=== PATIENT | female | born 1945 | race Hispanic/Latino ===

== ENCOUNTER 2017-12-13 13:29 | Outpatient (CLI) | payer MEDICARE | END 2017-12-13 13:30 | disposition home or self-care (01) | LOC: BICMAMMO 13:29 | PROVIDERS: ATTEND Internal Medicine | DX: Z12.31 Encounter for screening mammogram for malignant neoplasm of breast (principal); Z80.3 Family history of malignant neoplasm of breast | CPT/HCPCS: 77063; 77067 ==

== ENCOUNTER 2019-07-31 13:52 | Outpatient (CLI) | payer MEDICARE, BC ==
--- NOTE | 2019-07-31 14:34 | MMO ---
Bilateral MAMMO Bilat Screen [facility]. CLINICAL HISTORY: Patient is 73 years old and is seen for screening. The patient has the following family history of breast cancer: daughter. The patient has no personal history of cancer. VIEWS: The views performed were: bilateral craniocaudal with tomosynthesis and bilateral mediolateral oblique with tomosynthesis. FILMS COMPARED: The present examination has been compared to prior imaging studies performed at [facility] on 12/13/2017, and at [facility] on 02/07/2013, 02/13/2014 and 03/13/2015. This study has been interpreted with the assistance of computer-aided detection. MAMMOGRAM FINDINGS: There are scattered fibroglandular densities. There are stable benign appearing calcifications seen in both breasts. There are also vascular calcifications. There are no suspicious masses, suspicious calcifications, or new areas of architectural distortion. IMPRESSION: THERE IS NO MAMMOGRAPHIC EVIDENCE OF MALIGNANCY. A ROUTINE FOLLOW-UP MAMMOGRAM IN 1 YEAR IS RECOMMENDED. THE RESULTS OF THIS EXAM WERE SENT TO THE PATIENT. ACR BI-RADS Category 2 - Benign finding MAMMOGRAPHY NOTE: 1. A negative mammogram report should not delay a biopsy if a dominant of clinically suspicious mass is present. 2. Approximately 10% to 15% of breast cancers are not detected by mammography. 3. Adenosis and dense breasts may obscure an underlying neoplasm. Reported by: IFEANYI MATTHEWS MD Electonically Signed: [id number]
== END 2019-07-31 13:53 | disposition home or self-care (01) ==
LOC: BICMAMMO 13:52
PROVIDERS: ATTEND Internal Medicine
DX: Z12.31 Encounter for screening mammogram for malignant neoplasm of breast (principal); Z80.3 Family history of malignant neoplasm of breast
CPT/HCPCS: 77063; 77067

== ENCOUNTER 2022-11-18 09:47 | Outpatient (CLI) | payer OTHER | END 2022-11-18 09:48 | disposition home or self-care (01) | LOC: BICMAMMO 09:47 | PROVIDERS: ATTEND Family Medicine | DX: Z12.31 Encounter for screening mammogram for malignant neoplasm of breast (principal); Z12.2 Encounter for screening for malignant neoplasm of respiratory organs; F17.210 Nicotine dependence, cigarettes, uncomplicated; Z80.3 Family history of malignant neoplasm of breast | CPT/HCPCS: 71271; 77063; 77067 ==

== ENCOUNTER 2023-02-08 06:56 | Emergency (ER) | payer OTHER | END 2023-02-08 08:26 | disposition home or self-care (01) | LOC: ERS 06:56 | DX: S22.31XA Fracture of one rib, right side, initial encounter for closed fracture (principal); F17.210 Nicotine dependence, cigarettes, uncomplicated; W18.30XA Fall on same level, unspecified, initial encounter ==

== ENCOUNTER 2023-04-14 13:20 | Outpatient (CLI) | payer OTHER | END 2023-04-14 13:21 | disposition home or self-care (01) | LOC: BICMAMMO 13:20 | PROVIDERS: ATTEND Family Medicine | DX: Z13.820 Encounter for screening for osteoporosis (principal); M81.0 Age-related osteoporosis without current pathological fracture; Z78.0 Asymptomatic menopausal state | CPT/HCPCS: 77080 ==

== ENCOUNTER 2023-12-19 16:38 | Emergency (ER) | payer MEDICARE, SELFPAY ==
[2023-12-19 18:15] LABS: #Basophils Less than 0.03 10x3/uL (0.0-0.2); %Basophils 0.2 % (0.0-1.0); %Eosinophils 0.5 % (0.0-10.0); %Lymphocytes 23.3 % (21.0-51.0); %Monocytes 8.6 % (0.0-10.0); Hematocrit 42.4 % (36.0-47.0); Hemoglobin 14.9 g/dL (12.0-16.0); Mean Corpuscular HGB CONC 35.1 g/dL (32.0-36.0); Mean Platelet Volume 8.5 fL (7.4-10.4); Platelet Count 306 10x3/uL (130-400); RBC Distribution Width 11.9 % (11.5-14.5); Red Blood Cell (RBC) Count 4.51 mill/uL (4.20-5.40)
[2023-12-19 18:34] LABS: ALT (SGPT) 13 U/L (8-55); AST (SGOT) 23 U/L (5-34); Alkaline Phosphatase 71 U/L (40-110); Anion Gap 14 mmol/L (10-20); BUN (Urea Nitrogen) 6 mg/dL (9.8-20.1); Bilirubin, Total 0.6 mg/dL (0.2-1.2); Calc. Creatinine Clearance 0 mL/min (70-130); Calcium 8.8 mg/dL (7.8-10.44); Carbon Dioxide 25 mmol/L (23-31); Chloride 99 mmol/L (98-107); Estimated GFR 95; Globulin 2.9 g/dL (2.4-3.5); Glucose 117 mg/dL (83-110); Potassium 3.2 mmol/L (3.5-5.1); Protein, Total 6.9 g/dL (5.8-8.1); Sodium 135 mmol/L (136-145)
== END 2023-12-19 19:10 | disposition home or self-care (01) ==
LOC: ERS 16:38
DX: M25.562 Pain in left knee (principal); E87.6 Hypokalemia; F17.210 Nicotine dependence, cigarettes, uncomplicated
CPT/HCPCS: 36415; 80053; 85025

== ENCOUNTER 2024-04-16 14:52 | Outpatient (CLI) | payer MEDICARE | END 2024-04-16 14:53 | disposition home or self-care (01) | LOC: CT 14:52 | PROVIDERS: ATTEND Family Medicine | DX: R91.8 Other nonspecific abnormal finding of lung field (principal) | CPT/HCPCS: 36415; 71270; 82565 ==

== ENCOUNTER 2024-04-23 07:50 | Emergency (ER) | payer MEDICARE | END 2024-04-23 09:55 | disposition home or self-care (01) | LOC: ERS 07:50 | DX: S00.83XA Contusion of other part of head, initial encounter (principal); F17.210 Nicotine dependence, cigarettes, uncomplicated; W01.198A Fall on same level from slipping, tripping and stumbling with subsequent striking against other object, initial encounter | CPT/HCPCS: 70450 ==

== ENCOUNTER 2024-05-23 08:08 | Inpatient (IN) | payer MEDICARE ==
[2024-05-23 09:31] LABS: #Basophils 0.03 10x3/uL (0.0-0.2); %Basophils 0.2 % (0.0-1.0); %Eosinophils 0.4 % (0.0-10.0); %Lymphocytes 9.1 % (21.0-51.0); %Monocytes 7.6 % (0.0-10.0); %Neutrophils 82.3 % (42.0-75.0); Hemoglobin 10.7 g/dL (12.0-16.0); Mean Corpuscular HGB CONC 35.7 g/dL (32.0-36.0); Mean Corpuscular Hemoglobin 32.4 pg (27.0-31.0); Mean Corpuscular Volume 90.9 fL (78.0-98.0); Mean Platelet Volume 8.2 fL (7.4-10.4); Platelet Count 406 10x3/uL (130-400); RBC Distribution Width 12.2 % (11.5-14.5)
[2024-05-23 09:49] LABS: ALT (SGPT) 13 U/L (8-55); AST (SGOT) 18 U/L (5-34); Alkaline Phosphatase 146 U/L (40-110); Anion Gap 13 mmol/L (10-20); BUN (Urea Nitrogen) 7 mg/dL (9.8-20.1); Bilirubin, Total 0.6 mg/dL (0.2-1.2); CK (CPK) 163 U/L (29-168); Calc. Creatinine Clearance 0 mL/min (70-130); Calcium 8.4 mg/dL (7.8-10.44); Carbon Dioxide 26 mmol/L (23-31); Chloride 97 mmol/L (98-107); Estimated GFR 98; Globulin 2.9 g/dL (2.4-3.5); Glucose 122 mg/dL (83-110); Protein, Total 5.9 g/dL (5.8-8.1); Sodium 133 mmol/L (136-145)
[2024-05-23 09:53] LABS: Troponin I 0.015 ng/mL (< 0.028)
[2024-05-23] MEDS ORDERED: Potassium Chloride 20 MEQ TAB ONE (11:22)
[2024-05-23 11:32] LABS: Magnesium 1.7 mg/dL (1.6-2.6)
[2024-05-23 13:08] LABS: Bacteria/HPF None Seen HPF (None Seen); Bilirubin Negative (Negative); Blood, Urine Negative (Negative); CAUTI Indications for Culture Dysuria,urgency,freq; Clarity Clear (Clear); Glucose, Urine (Dipstick) Normal (Negative); Ketone, Urine Negative (Negative); Leukocyte Negative Leu/uL (Negative); Nitrite Negative (Negative); Protein, Urine (Dipstick) Negative (Neg-Trace); RBC/HPF 0-3 HPF (0-3); Specific Gravity, Urine 1.005 (1.002-1.036); Squamous Epithelial None Seen HPF (0-3); Urobilinogen Normal mg/dL (Less than 2); WBC/HPF 0-3 HPF (0-3); pH, Urine 7.5 (5.0-9.0)
[2024-05-23 13:09] LABS: Urine Culture Reflex No No
[2024-05-23 14:41] VITALS: BMI 13.9
[2024-05-23] MEDS: Potassium Chloride 20 MEQ TAB PO SCH (16:26)
[2024-05-23] MEDS: Nicotine 7 MG PATCH TD SCH (16:26)
[2024-05-23] MEDS ORDERED: Acetaminophen 325 MG TAB ONE (16:30)
[2024-05-23] MEDS: Acetaminophen 325 MG TAB PO PRN (16:32)
[2024-05-23 17:42] LABS: Chloride 100 mmol/L (98-107); Potassium 3.2 mmol/L (3.5-5.1); Sodium 132 mmol/L (136-145)
[2024-05-23 17:43] LABS: Anion Gap 10 mmol/L (10-20); BUN (Urea Nitrogen) 6 mg/dL (9.8-20.1); Calc. Creatinine Clearance 53 mL/min (70-130); Calcium 8.3 mg/dL (7.8-10.44); Carbon Dioxide 24 mmol/L (23-31); Estimated GFR 100; Glucose 126 mg/dL (83-110)
[2024-05-24] MEDS: Ketorolac Tromethamine 30 MG (1 mL) VIAL IVP SCH (00:56)
[2024-05-24 04:28] LABS: #Basophils 0.04 10x3/uL (0.0-0.2); %Basophils 0.3 % (0.0-1.0); %Eosinophils 0.4 % (0.0-10.0); %Lymphocytes 13.5 % (21.0-51.0); %Monocytes 8.1 % (0.0-10.0); %Neutrophils 77.4 % (42.0-75.0); Hemoglobin 9.1 g/dL (12.0-16.0); Mean Corpuscular Hemoglobin 32.5 pg (27.0-31.0); Mean Corpuscular Volume 92.9 fL (78.0-98.0); Mean Platelet Volume 8.2 fL (7.4-10.4); Platelet Count 362 10x3/uL (130-400); RBC Distribution Width 12.5 % (11.5-14.5)
[2024-05-24 04:39] LABS: Anion Gap 10 mmol/L (10-20); BUN (Urea Nitrogen) 6 mg/dL (9.8-20.1); Calc. Creatinine Clearance 53 mL/min (70-130); Calcium 8.1 mg/dL (7.8-10.44); Carbon Dioxide 24 mmol/L (23-31); Chloride 101 mmol/L (98-107); Estimated GFR 100; Glucose 99 mg/dL (83-110); Potassium 3.2 mmol/L (3.5-5.1); Sodium 132 mmol/L (136-145)
[2024-05-24] MEDS ORDERED: Electrolyte Replacement Protocol FS PRN (08:15)
[2024-05-24] MEDS ORDERED: Electrolyte Replacement Protocol 1 EACH FS SCH (08:15)
[2024-05-24] MEDS: FLU (Fluad Triv) TS24-25 (65UP)/MF59C/PF 45 MCG/0.5 ML Syringe IM ONE (09:00)
[2024-05-24] MEDS: Potassium Chloride 20 MEQ TAB PO SCH (09:01)
[2024-05-24] MEDS: Enoxaparin 30 MG (0.3 mL) SYRINGE SC SCH (09:01)
[2024-05-24] MEDS: Amlodipine 5 MG TAB PO SCH (09:01)
[2024-05-24] MEDS: Atorvastatin Calcium 40 MG TAB PO SCH (09:01)
[2024-05-24] MEDS: Magnesium 2 GM/50 ML(in water) 2 GM in Premix 1 BAG IVPB SCH (10:17)
[2024-05-24] MEDS ORDERED: [UNRECOGNIZED DRUG - OTHER] EA EYE SCH (10:29)
[2024-05-24] MEDS ORDERED: DORZOLAMIDE EA EYE SCH (10:29)
[2024-05-24] MEDS ORDERED: TIMOLOL EA EYE SCH (10:29)
[2024-05-24] MEDS ORDERED: Ipratropium/Albuterol 3 ML NEB NEB PRN (10:51)
[2024-05-24] MEDS: guaiFENesin ER 600 MG TAB PO SCH (11:30)
[2024-05-24] MEDS: Megestrol Acetate 800 MG/20 ML UDCUP PO SCH (12:30)
[2024-05-24] MEDS: Losartan 25 MG TAB PO SCH (12:35)
[2024-05-24] MEDS: Furosemide 20 MG (2 mL) VIAL SLOW IVP SCH (12:38)
[2024-05-24] MEDS: D5W-AA 4.25% with LYTES 1,000 ML IV SCH (14:22)
[2024-05-24] MEDS: Ipratropium/Albuterol 3 ML NEB NEB SCH (14:39)
[2024-05-24] MEDS: Latanoprost 0.005% Ophth Soln 2.5 ml Bottle EA EYE SCH (20:38)
[2024-05-24] MEDS: Mirtazapine 15 MG TAB PO SCH (20:38)
[2024-05-24] MEDS: DorzolamidE/Timolol 2%/0.5% Ophth Soln 10 ml Bottle EA EYE SCH (20:52)
[2024-05-24] MEDS ORDERED: Non-Formulary Item 1 EACH (Mirtazapine [Mirtazapine] 7.5 MG Tablet) PO SCH (21:00)
[2024-05-25 05:51] LABS: #Basophils 0.03 10x3/uL (0.0-0.2); %Basophils 0.3 % (0.0-1.0); %Eosinophils 0.3 % (0.0-10.0); %Lymphocytes 14.9 % (21.0-51.0); %Monocytes 9.5 % (0.0-10.0); %Neutrophils 74.6 % (42.0-75.0); Hematocrit 27.1 % (36.0-47.0); Hemoglobin 9.2 g/dL (12.0-16.0); Mean Corpuscular HGB CONC 33.9 g/dL (32.0-36.0); Mean Corpuscular Hemoglobin 32.3 pg (27.0-31.0); Mean Corpuscular Volume 95.1 fL (78.0-98.0); Mean Platelet Volume 8.4 fL (7.4-10.4); Platelet Count 355 10x3/uL (130-400); RBC Distribution Width 12.6 % (11.5-14.5); Red Blood Cell (RBC) Count 2.85 mill/uL (4.20-5.40)
[2024-05-25 06:34] LABS: Anion Gap 14 mmol/L (10-20); BUN (Urea Nitrogen) 12 mg/dL (9.8-20.1); Calc. Creatinine Clearance 40 mL/min (70-130); Carbon Dioxide 20 mmol/L (23-31); Chloride 97 mmol/L (98-107); Estimated GFR 93; Glucose 385 mg/dL (83-110); Magnesium 2.4 mg/dL (1.6-2.6); Potassium 5.4 mmol/L (3.5-5.1); Sodium 126 mmol/L (136-145)
[2024-05-25] MEDS ORDERED: Glucagon 1 MG/ML KIT IM PRN (08:17)
[2024-05-25] MEDS ORDERED: Dextrose 5% in Water 1,000 ML IV PRN (08:17)
[2024-05-25] MEDS ORDERED: Dextrose 50% Abboject 50 ML SYRINGE SLOW IVP PRN (08:17)
[2024-05-25] MEDS: Losartan 25 MG TAB PO SCH (09:00)
[2024-05-25] MEDS: Clopidogrel Bisulfate 75 MG TAB PO SCH (09:00)
[2024-05-25] MEDS ORDERED: Non-Formulary Item 1 EACH (Losartan Potassium [Losartan Potassium] 50 MG Tablet) PO SCH (09:00)
[2024-05-25] MEDS: Folic Acid 1 MG TAB PO SCH (09:00)
[2024-05-25] MEDS: Multivitamin W/ Minerals 1 TAB PO SCH (09:01)
[2024-05-25] MEDS: Thiamine 100 MG TAB PO SCH (09:01)
[2024-05-25] MEDS: Megestrol Acetate 800 MG/20 ML UDCUP PO SCH (09:02)
[2024-05-25 09:32] LABS: Hemoglobin A1c 5.6 % (4.0-6.0)
[2024-05-25] MEDS: Insulin Lispro 100 UNIT/ML 10 ML VIAL SC PRN (09:41)
[2024-05-25 09:54] LABS: Critical Call Chemistry NUR.AC18
[2024-05-25 10:12] LABS: Anion Gap 15 mmol/L (10-20); BUN (Urea Nitrogen) 13 mg/dL (9.8-20.1); Calc. Creatinine Clearance 38 mL/min (70-130); Calcium 8.3 mg/dL (7.8-10.44); Carbon Dioxide 19 mmol/L (23-31); Chloride 97 mmol/L (98-107); Estimated GFR 92; Magnesium 2.4 mg/dL (1.6-2.6); Phosphorus 6.5 mg/dL (2.3-4.7); Potassium 5.9 mmol/L (3.5-5.1); Sodium 125 mmol/L (136-145)
[2024-05-25 10:28] LABS: Glucose 441 mg/dL (83-110)
[2024-05-25 18:33] LABS: Anion Gap 14 mmol/L (10-20); BUN (Urea Nitrogen) 17 mg/dL (9.8-20.1); Calc. Creatinine Clearance 47 mL/min (70-130); Calcium 8.5 mg/dL (7.8-10.44); Carbon Dioxide 19 mmol/L (23-31); Chloride 102 mmol/L (98-107); Estimated GFR 97; Glucose 122 mg/dL (83-110); Potassium 3.8 mmol/L (3.5-5.1); Sodium 131 mmol/L (136-145)
[2024-05-26 04:15] LABS: #Basophils Less than 0.03 10x3/uL (0.0-0.2); %Basophils 0.2 % (0.0-1.0); %Eosinophils 0.4 % (0.0-10.0); %Lymphocytes 15.4 % (21.0-51.0); %Monocytes 9.1 % (0.0-10.0); %Neutrophils 74.4 % (42.0-75.0); Hematocrit 29.4 % (36.0-47.0); Hemoglobin 10.1 g/dL (12.0-16.0); Mean Corpuscular HGB CONC 34.4 g/dL (32.0-36.0); Mean Corpuscular Hemoglobin 31.9 pg (27.0-31.0); Mean Corpuscular Volume 92.7 fL (78.0-98.0); Mean Platelet Volume 8.5 fL (7.4-10.4); Platelet Count 404 10x3/uL (130-400); RBC Distribution Width 12.6 % (11.5-14.5); Red Blood Cell (RBC) Count 3.17 mill/uL (4.20-5.40)
[2024-05-26 04:30] LABS: Anion Gap 11 mmol/L (10-20); BUN (Urea Nitrogen) 14 mg/dL (9.8-20.1); Calc. Creatinine Clearance 46 mL/min (70-130); Calcium 8.3 mg/dL (7.8-10.44); Carbon Dioxide 23 mmol/L (23-31); Chloride 105 mmol/L (98-107); Estimated GFR 96; Glucose 108 mg/dL (83-110); Magnesium 1.9 mg/dL (1.6-2.6); Potassium 3.5 mmol/L (3.5-5.1); Sodium 135 mmol/L (136-145)
[2024-05-26] MEDS: Sodium Chloride 0.9% 500 ML IV SCH ×2 (04:35→06:00)
[2024-05-26 04:36] LABS: Phosphorus 2.7 mg/dL (2.3-4.7)
[2024-05-26] MEDS: Sodium Chloride 0.9% 250 ML IV SCH (05:30)
[2024-05-26] MEDS: Albumin 25% 25 GM (100 mL) BOT IVPB SCH (05:31)
[2024-05-26] MEDS ORDERED: Midodrine HCl 5 MG TAB PO SCH (06:15)
[2024-05-26] MEDS ORDERED: hydrALAZINE 25 MG TAB PO PRN (06:18)
[2024-05-26 06:34] LABS: Troponin I Less than 0.010 ng/mL (< 0.028)
[2024-05-26] MEDS: Midodrine HCl 5 MG TAB PO SCH (07:12)
[2024-05-26] MEDS: Potassium Chloride 20 MEQ TAB PO SCH (09:28)
[2024-05-26] MEDS: Magnesium 2 GM/50 ML(in water) 2 GM in Premix 1 BAG IVPB SCH (09:29)
[2024-05-26 09:59] LABS: Troponin I Less than 0.010 ng/mL (< 0.028)
[2024-05-27 04:20] LABS: #Basophils 0.03 10x3/uL (0.0-0.2); %Basophils 0.2 % (0.0-1.0); %Eosinophils 0.9 % (0.0-10.0); %Monocytes 8.5 % (0.0-10.0); %Neutrophils 76.8 % (42.0-75.0); Hematocrit 29.8 % (36.0-47.0); Mean Corpuscular HGB CONC 33.6 g/dL (32.0-36.0); Mean Corpuscular Hemoglobin 32.6 pg (27.0-31.0); Mean Corpuscular Volume 97.1 fL (78.0-98.0); Mean Platelet Volume 8.6 fL (7.4-10.4); Platelet Count 403 10x3/uL (130-400); RBC Distribution Width 12.8 % (11.5-14.5); Red Blood Cell (RBC) Count 3.07 mill/uL (4.20-5.40)
[2024-05-27] MEDS: hydrALAZINE 20 MG/ML VIAL SLOW IVP PRN (05:50)
[2024-05-27 06:32] LABS: Anion Gap 11 mmol/L (10-20); BUN (Urea Nitrogen) 15 mg/dL (9.8-20.1); Calc. Creatinine Clearance 53 mL/min (70-130); Calcium 8.4 mg/dL (7.8-10.44); Carbon Dioxide 19 mmol/L (23-31); Chloride 109 mmol/L (98-107); Estimated GFR 99; Glucose 91 mg/dL (83-110); Phosphorus 2.5 mg/dL (2.3-4.7); Potassium 4.6 mmol/L (3.5-5.1); Sodium 134 mmol/L (136-145)
[2024-05-27] MEDS: Magnesium 2 GM/50 ML(in water) 2 GM in Premix 1 BAG IVPB SCH (09:24)
[2024-05-27 12:57] VITALS: BMI 14.3
[2024-05-27] MEDS: traMADol HCl 50 MG TAB PO PRN (21:45)
[2024-05-28 04:55] LABS: #Basophils 0.03 10x3/uL (0.0-0.2); %Basophils 0.2 % (0.0-1.0); %Eosinophils 1.2 % (0.0-10.0); %Lymphocytes 13.9 % (21.0-51.0); %Monocytes 9.5 % (0.0-10.0); %Neutrophils 74.7 % (42.0-75.0); Hematocrit 26.3 % (36.0-47.0); Hemoglobin 9.1 g/dL (12.0-16.0); Mean Corpuscular HGB CONC 34.6 g/dL (32.0-36.0); Mean Corpuscular Hemoglobin 32.9 pg (27.0-31.0); Mean Corpuscular Volume 94.9 fL (78.0-98.0); Mean Platelet Volume 8.7 fL (7.4-10.4); Platelet Count 413 10x3/uL (130-400); RBC Distribution Width 12.5 % (11.5-14.5); Red Blood Cell (RBC) Count 2.77 mill/uL (4.20-5.40)
[2024-05-28 05:33] LABS: Anion Gap 11 mmol/L (10-20); BUN (Urea Nitrogen) 17 mg/dL (9.8-20.1); Calc. Creatinine Clearance 50 mL/min (70-130); Calcium 8.5 mg/dL (7.8-10.44); Carbon Dioxide 18 mmol/L (23-31); Chloride 104 mmol/L (98-107); Estimated GFR 98; Glucose 108 mg/dL (83-110); Magnesium 1.9 mg/dL (1.6-2.6); Sodium 128 mmol/L (136-145)
[2024-05-28 05:40] LABS: Phosphorus 3.7 mg/dL (2.3-4.7)
[2024-05-28] MEDS: Magnesium 2 GM/50 ML(in water) 2 GM in Premix 1 BAG IVPB SCH (09:23)
[2024-05-28] MEDS: Amino Acids 4.25 %/Dextrose 5% 1,000 ML IV SCH (15:39)
[2024-05-29 04:45] LABS: #Basophils 0.04 10x3/uL (0.0-0.2); %Basophils 0.2 % (0.0-1.0); %Eosinophils 0.5 % (0.0-10.0); %Lymphocytes 11.1 % (21.0-51.0); %Monocytes 9.3 % (0.0-10.0); %Neutrophils 78.4 % (42.0-75.0); Hematocrit 29.1 % (36.0-47.0); Hemoglobin 10.1 g/dL (12.0-16.0); Mean Corpuscular HGB CONC 34.7 g/dL (32.0-36.0); Mean Corpuscular Hemoglobin 33.1 pg (27.0-31.0); Mean Corpuscular Volume 95.4 fL (78.0-98.0); Mean Platelet Volume 8.7 fL (7.4-10.4); Platelet Count 499 10x3/uL (130-400); RBC Distribution Width 12.8 % (11.5-14.5); Red Blood Cell (RBC) Count 3.05 mill/uL (4.20-5.40)
[2024-05-29 05:14] LABS: Anion Gap 12 mmol/L (10-20); BUN (Urea Nitrogen) 16 mg/dL (9.8-20.1); Calc. Creatinine Clearance 44 mL/min (70-130); Calcium 8.4 mg/dL (7.8-10.44); Carbon Dioxide 18 mmol/L (23-31); Chloride 101 mmol/L (98-107); Estimated GFR 95; Glucose 115 mg/dL (83-110); Potassium 4.5 mmol/L (3.5-5.1); Sodium 126 mmol/L (136-145)
[2024-05-29] MEDS: Magnesium 2 GM/50 ML(in water) 2 GM in Premix 1 BAG IVPB SCH (09:52)
[2024-05-29] MEDS: Sodium Chloride 0.9% 500 ML IV SCH (11:43)
[2024-05-29] MEDS ORDERED: VANCOMYCIN IVPB PRN (15:39)
[2024-05-29] MEDS: Vancomycin 1 GM in Premix 1 BAG IVPB SCH (17:36)
[2024-05-29] MEDS: Vancomycin 1 GM in Sodium Chloride 0.9% 250 ML 250 ML IVPB SCH (17:45)
[2024-05-29 20:19] LABS: Anion Gap 10 mmol/L (10-20); BUN (Urea Nitrogen) 17 mg/dL (9.8-20.1); Calc. Creatinine Clearance 43 mL/min (70-130); Calcium 8.3 mg/dL (7.8-10.44); Carbon Dioxide 16 mmol/L (23-31); Chloride 106 mmol/L (98-107); Estimated GFR 94; Glucose 143 mg/dL (83-110); Potassium 4.1 mmol/L (3.5-5.1); Sodium 128 mmol/L (136-145)
[2024-05-29] MEDS ORDERED: Vancomycin 1 GM in Sodium Chloride 0.9% 250 ML 250 ML IVPB SCH (21:00)
[2024-05-29] MEDS: Cefepime 1 GM in Sodium Chloride 0.9% 100 ML IVPB SCH (21:41)
[2024-05-30 09:31] LABS: #Basophils 0.04 10x3/uL (0.0-0.2); %Basophils 0.3 % (0.0-1.0); %Eosinophils 1.2 % (0.0-10.0); %Lymphocytes 11.1 % (21.0-51.0); Hematocrit 26.5 % (36.0-47.0); Hemoglobin 9.1 g/dL (12.0-16.0); Mean Corpuscular HGB CONC 34.3 g/dL (32.0-36.0); Mean Corpuscular Hemoglobin 32.5 pg (27.0-31.0); Mean Corpuscular Volume 94.6 fL (78.0-98.0); Mean Platelet Volume 8.4 fL (7.4-10.4); Platelet Count 429 10x3/uL (130-400); RBC Distribution Width 12.8 % (11.5-14.5)
[2024-05-30 10:23] LABS: Vancomycin, Random 8.6 ug/mL (See Comment)
[2024-05-30 10:26] LABS: Anion Gap 12 mmol/L (10-20); BUN (Urea Nitrogen) 14 mg/dL (9.8-20.1); Calc. Creatinine Clearance 49 mL/min (70-130); Calcium 8.5 mg/dL (7.8-10.44); Carbon Dioxide 19 mmol/L (23-31); Chloride 106 mmol/L (98-107); Estimated GFR 96; Glucose 126 mg/dL (83-110); Magnesium 1.7 mg/dL (1.6-2.6); Potassium 3.8 mmol/L (3.5-5.1); Sodium 133 mmol/L (136-145)
[2024-05-30] MEDS: Morphine 2 MG/ML VIAL SLOW IVP SCH (11:24)
[2024-05-30] MEDS: Magnesium 2 GM/50 ML(in water) 2 GM in Premix 1 BAG IVPB SCH (11:25)
[2024-05-30] MEDS: Vancomycin HCl 500 MG in Sodium Chloride 0.9% 100 ML IVPB SCH (12:23)
[2024-05-30] MEDS ORDERED: Vancomycin (BATCH) 1.25 GM in Premix 1 BAG IVPB SCH (16:00)
[2024-05-31] MEDS: Melatonin 3 MG TAB PO SCH (00:26)
[2024-05-31 04:40] LABS: #Basophils 0.04 10x3/uL (0.0-0.2); %Basophils 0.2 % (0.0-1.0); %Eosinophils 1.5 % (0.0-10.0); %Lymphocytes 11.9 % (21.0-51.0); %Monocytes 11.7 % (0.0-10.0); Hematocrit 25.6 % (36.0-47.0); Hemoglobin 8.9 g/dL (12.0-16.0); Mean Corpuscular HGB CONC 34.8 g/dL (32.0-36.0); Mean Corpuscular Hemoglobin 32.7 pg (27.0-31.0); Mean Corpuscular Volume 94.1 fL (78.0-98.0); Mean Platelet Volume 8.4 fL (7.4-10.4); Platelet Count 429 10x3/uL (130-400); RBC Distribution Width 12.9 % (11.5-14.5); Red Blood Cell (RBC) Count 2.72 mill/uL (4.20-5.40)
[2024-05-31 05:21] LABS: Anion Gap 11 mmol/L (10-20); BUN (Urea Nitrogen) 12 mg/dL (9.8-20.1); Calc. Creatinine Clearance 53 mL/min (70-130); Calcium 8.2 mg/dL (7.8-10.44); Carbon Dioxide 18 mmol/L (23-31); Chloride 102 mmol/L (98-107); Estimated GFR 98; Glucose 118 mg/dL (83-110); Magnesium 1.7 mg/dL (1.6-2.6); Potassium 4.2 mmol/L (3.5-5.1); Sodium 127 mmol/L (136-145)
[2024-05-31] MEDS: Magnesium 2 GM/50 ML(in water) 2 GM in Premix 1 BAG IVPB SCH (06:28)
[2024-05-31] MEDS: Sodium Chloride 0.9% 500 ML IV SCH (12:13)
[2024-05-31 14:25] LABS: Anion Gap 11 mmol/L (10-20); BUN (Urea Nitrogen) 11 mg/dL (9.8-20.1); Calc. Creatinine Clearance 53 mL/min (70-130); Calcium 8.6 mg/dL (7.8-10.44); Carbon Dioxide 19 mmol/L (23-31); Chloride 104 mmol/L (98-107); Estimated GFR 98; Glucose 107 mg/dL (83-110); Sodium 130 mmol/L (136-145)
[2024-06-01 06:08] LABS: #Basophils 0.04 10x3/uL (0.0-0.2); %Basophils 0.3 % (0.0-1.0); %Eosinophils 1.6 % (0.0-10.0); %Lymphocytes 14.8 % (21.0-51.0); %Monocytes 10.6 % (0.0-10.0); %Neutrophils 72.2 % (42.0-75.0); Hematocrit 25.9 % (36.0-47.0); Mean Corpuscular HGB CONC 34.7 g/dL (32.0-36.0); Mean Corpuscular Hemoglobin 32.8 pg (27.0-31.0); Mean Corpuscular Volume 94.5 fL (78.0-98.0); Mean Platelet Volume 8.8 fL (7.4-10.4); Platelet Count 484 10x3/uL (130-400); Red Blood Cell (RBC) Count 2.74 mill/uL (4.20-5.40)
[2024-06-01 06:09] LABS: Anion Gap 11 mmol/L (10-20); BUN (Urea Nitrogen) 14 mg/dL (9.8-20.1); Calc. Creatinine Clearance 51 mL/min (70-130); Calcium 8.3 mg/dL (7.8-10.44); Carbon Dioxide 19 mmol/L (23-31); Chloride 105 mmol/L (98-107); Estimated GFR 97; Glucose 96 mg/dL (83-110); Magnesium 1.7 mg/dL (1.6-2.6); Potassium 4.4 mmol/L (3.5-5.1); Sodium 131 mmol/L (136-145)
[2024-06-01] MEDS: Magnesium 2 GM/50 ML(in water) 2 GM in Premix 1 BAG IVPB SCH (08:25)
[2024-06-01] MEDS: Amlodipine 5 MG TAB PO SCH (08:26)
[2024-06-01] MEDS: Vancomycin HCl 750 MG in Sodium Chloride 0.9% 250 ML 250 ML IVPB SCH (11:22)
[2024-06-01] MEDS: Ipratropium/Albuterol 3 ML NEB NEB SCH (13:11)
[2024-06-02 05:09] LABS: Amphetamine Not Detected (NotDetected); Barbiturates Screen Not Detected (NotDetected); Benzodiazepine Screen Not Detected (NotDetected); Cocaine Metabolite Screen Not Detected (NotDetected); Methadone Not Detected (NotDetected); Methamphetamine Not Detected (NotDetected); Opiate Screen Not Detected (NotDetected); Oxycodone Screen Not Detected (NotDetected); Phencyclidine (PCP) Not Detected (NotDetected); THC/Cannabinoid Screen Not Detected (NotDetected); Tricyclic Screen Not Detected (NotDetected)
[2024-06-02 05:09] LABS: #Basophils 0.03 10x3/uL (0.0-0.2); %Basophils 0.2 % (0.0-1.0); %Eosinophils 1.2 % (0.0-10.0); %Lymphocytes 11.6 % (21.0-51.0); %Monocytes 9.5 % (0.0-10.0); %Neutrophils 76.9 % (42.0-75.0); Hematocrit 26.7 % (36.0-47.0); Hemoglobin 9.5 g/dL (12.0-16.0); Mean Corpuscular HGB CONC 35.6 g/dL (32.0-36.0); Mean Corpuscular Hemoglobin 33.2 pg (27.0-31.0); Mean Corpuscular Volume 93.4 fL (78.0-98.0); Mean Platelet Volume 8.5 fL (7.4-10.4); Platelet Count 513 10x3/uL (130-400); RBC Distribution Width 13.2 % (11.5-14.5); Red Blood Cell (RBC) Count 2.86 mill/uL (4.20-5.40)
[2024-06-02 06:00] LABS: Vancomycin, Random 18.4 ug/mL (See Comment)
[2024-06-02 06:12] LABS: Anion Gap 10 mmol/L (10-20); BUN (Urea Nitrogen) 10 mg/dL (9.8-20.1); Calc. Creatinine Clearance 54 mL/min (70-130); Calcium 8.6 mg/dL (7.8-10.44); Carbon Dioxide 19 mmol/L (23-31); Chloride 107 mmol/L (98-107); Estimated GFR 99; Glucose 118 mg/dL (83-110); Magnesium 1.7 mg/dL (1.6-2.6); Potassium 3.8 mmol/L (3.5-5.1); Sodium 132 mmol/L (136-145)
[2024-06-02] MEDS: Magnesium 2 GM/50 ML(in water) 2 GM in Premix 1 BAG IVPB SCH (08:45)
[2024-06-03 05:20] LABS: #Basophils 0.04 10x3/uL (0.0-0.2); %Basophils 0.3 % (0.0-1.0); %Eosinophils 1.1 % (0.0-10.0); %Monocytes 8.9 % (0.0-10.0); Hematocrit 24.9 % (36.0-47.0); Hemoglobin 8.8 g/dL (12.0-16.0); Mean Corpuscular HGB CONC 35.3 g/dL (32.0-36.0); Mean Corpuscular Hemoglobin 32.8 pg (27.0-31.0); Mean Corpuscular Volume 92.9 fL (78.0-98.0); Mean Platelet Volume 8.4 fL (7.4-10.4); Platelet Count 486 10x3/uL (130-400); RBC Distribution Width 13.2 % (11.5-14.5); Red Blood Cell (RBC) Count 2.68 mill/uL (4.20-5.40)
[2024-06-03 05:48] LABS: Anion Gap 12 mmol/L (10-20); BUN (Urea Nitrogen) 9 mg/dL (9.8-20.1); Calc. Creatinine Clearance 49 mL/min (70-130); Calcium 8.2 mg/dL (7.8-10.44); Carbon Dioxide 18 mmol/L (23-31); Chloride 107 mmol/L (98-107); Estimated GFR 97; Glucose 99 mg/dL (83-110); Magnesium 1.7 mg/dL (1.6-2.6); Potassium 3.9 mmol/L (3.5-5.1); Sodium 133 mmol/L (136-145)
[2024-06-03] MEDS: Magnesium 2 GM/50 ML(in water) 2 GM in Premix 1 BAG IVPB SCH (09:01)
[2024-06-03] MEDS: Losartan 25 MG TAB PO SCH (09:02)
[2024-06-03] MEDS: Cyanocobalamin (Vitamin B-12) 1,000 MCG TAB PO SCH (09:02)
[2024-06-03] MEDS ORDERED: Cosyntropin 250 MCG VIAL SLOW IVP SCH (09:15)
[2024-06-03] MEDS: Aspirin 81 mg Enteric Coated Tablet PO SCH (21:22)
[2024-06-03] MEDS: Atorvastatin Calcium 40 MG TAB PO SCH (21:34)
[2024-06-03] MEDS: Guaifenesin DM 100-10/5 ML UDCUP PO PRN (23:59)
[2024-06-04 04:46] LABS: #Basophils 0.06 10x3/uL (0.0-0.2); %Basophils 0.4 % (0.0-1.0); %Lymphocytes 13.6 % (21.0-51.0); %Monocytes 8.9 % (0.0-10.0); %Neutrophils 75.3 % (42.0-75.0); Hematocrit 27.1 % (36.0-47.0); Hemoglobin 9.4 g/dL (12.0-16.0); Mean Corpuscular HGB CONC 34.7 g/dL (32.0-36.0); Mean Corpuscular Hemoglobin 32.6 pg (27.0-31.0); Mean Corpuscular Volume 94.1 fL (78.0-98.0); Mean Platelet Volume 8.3 fL (7.4-10.4); Platelet Count 570 10x3/uL (130-400); RBC Distribution Width 13.5 % (11.5-14.5); Red Blood Cell (RBC) Count 2.88 mill/uL (4.20-5.40)
[2024-06-04 05:07] LABS: Anion Gap 11 mmol/L (10-20); BUN (Urea Nitrogen) 15 mg/dL (9.8-20.1); Calc. Creatinine Clearance 42 mL/min (70-130); Calcium 8.7 mg/dL (7.8-10.44); Carbon Dioxide 19 mmol/L (23-31); Chloride 103 mmol/L (98-107); Estimated GFR 94; Glucose 99 mg/dL (83-110); Magnesium 1.8 mg/dL (1.6-2.6); Sodium 129 mmol/L (136-145)
[2024-06-04 05:10] LABS: Vancomycin, Random 25.5 ug/mL (See Comment)
[2024-06-04] MEDS ORDERED: Aspirin 81 mg Enteric Coated Tablet PO SCH (09:00)
[2024-06-04] MEDS: Magnesium 2 GM/50 ML(in water) 2 GM in Premix 1 BAG IVPB SCH (09:41)
[2024-06-04] MEDS: Aspirin Chewable 81 MG TAB PO SCH (09:42)
[2024-06-04] MEDS ORDERED: Iopamidol 370 76% 100 ML VIAL ONE (13:55)
[2024-06-04] MEDS: Vancomycin HCl 500 MG in Sodium Chloride 0.9% 100 ML IVPB SCH (13:57)
[2024-06-04] MEDS ORDERED: VANCOMYCIN 1.25 GM/250 ML BAG 1.25 GM in Premix 1 BAG IVPB SCH (21:00)
[2024-06-04] MEDS: Vancomycin HCl 750 MG in Sodium Chloride 0.9% 250 ML 250 ML IVPB SCH (23:42)
[2024-06-05 07:55] LABS: #Basophils 0.04 10x3/uL (0.0-0.2); %Basophils 0.3 % (0.0-1.0); %Lymphocytes 14.8 % (21.0-51.0); %Monocytes 9.1 % (0.0-10.0); %Neutrophils 74.2 % (42.0-75.0); Hematocrit 25.6 % (36.0-47.0); Mean Corpuscular HGB CONC 35.2 g/dL (32.0-36.0); Mean Corpuscular Hemoglobin 32.1 pg (27.0-31.0); Mean Corpuscular Volume 91.4 fL (78.0-98.0); Mean Platelet Volume 8.2 fL (7.4-10.4); Platelet Count 539 10x3/uL (130-400); RBC Distribution Width 13.3 % (11.5-14.5)
[2024-06-05 08:10] LABS: Anion Gap 14 mmol/L (10-20); BUN (Urea Nitrogen) 13 mg/dL (9.8-20.1); Calc. Creatinine Clearance 40 mL/min (70-130); Calcium 8.5 mg/dL (7.8-10.44); Carbon Dioxide 15 mmol/L (23-31); Chloride 106 mmol/L (98-107); Estimated GFR 93; Glucose 101 mg/dL (83-110); Magnesium 1.8 mg/dL (1.6-2.6); Potassium 3.6 mmol/L (3.5-5.1); Sodium 131 mmol/L (136-145)
[2024-06-05] MEDS: Magnesium 2 GM/50 ML(in water) 2 GM in Premix 1 BAG IVPB SCH (08:53)
[2024-06-06 04:51] LABS: #Basophils 0.06 10x3/uL (0.0-0.2); %Basophils 0.4 % (0.0-1.0); %Eosinophils 0.7 % (0.0-10.0); %Lymphocytes 11.8 % (21.0-51.0); %Monocytes 9.3 % (0.0-10.0); %Neutrophils 77.3 % (42.0-75.0); Hematocrit 27.4 % (36.0-47.0); Hemoglobin 9.6 g/dL (12.0-16.0); Mean Corpuscular Hemoglobin 32.8 pg (27.0-31.0); Mean Corpuscular Volume 93.5 fL (78.0-98.0); Mean Platelet Volume 8.1 fL (7.4-10.4); Platelet Count 557 10x3/uL (130-400); RBC Distribution Width 13.5 % (11.5-14.5); Red Blood Cell (RBC) Count 2.93 mill/uL (4.20-5.40)
[2024-06-06 05:35] LABS: Vancomycin, Random 16.7 ug/mL (See Comment)
[2024-06-06 05:44] LABS: Magnesium 1.7 mg/dL (1.6-2.6)
[2024-06-06 05:46] LABS: Anion Gap 10 mmol/L (10-20); BUN (Urea Nitrogen) 18 mg/dL (9.8-20.1); Calc. Creatinine Clearance 47 mL/min (70-130); Calcium 8.8 mg/dL (7.8-10.44); Carbon Dioxide 22 mmol/L (23-31); Cardiac Risk 2.2 (Less than 4.5); Chloride 104 mmol/L (98-107); Cholesterol 86 mg/dl (< 200 Desired); Estimated GFR 97; Glucose 120 mg/dL (83-110); HDL Cholesterol 39 mg/dL (>60 Neg Risk); LDL Cholesterol, Calculated 39 mg/dL; Potassium 3.5 mmol/L (3.5-5.1); Sodium 132 mmol/L (136-145); Triglycerides 40 mg/dL (Less than 150)
[2024-06-06] MEDS: Potassium Chloride 20 MEQ TAB PO SCH (08:50)
[2024-06-06] MEDS: Magnesium 2 GM/50 ML(in water) 2 GM in Premix 1 BAG IVPB SCH (08:51)
[2024-06-06] MEDS: Vancomycin HCl 500 MG in Sodium Chloride 0.9% 100 ML IVPB SCH (15:44)
[2024-06-06] MEDS: Melatonin 3 MG TAB PO PRN (21:09)
[2024-06-06] MEDS: Mirtazapine 15 MG TAB PO SCH (21:09)
[2024-06-07 04:55] LABS: #Basophils 0.05 10x3/uL (0.0-0.2); %Basophils 0.4 % (0.0-1.0); %Eosinophils 0.8 % (0.0-10.0); %Lymphocytes 15.1 % (21.0-51.0); %Monocytes 9.5 % (0.0-10.0); %Neutrophils 73.7 % (42.0-75.0); Hemoglobin 9.7 g/dL (12.0-16.0); Mean Corpuscular HGB CONC 34.6 g/dL (32.0-36.0); Mean Corpuscular Hemoglobin 32.3 pg (27.0-31.0); Mean Corpuscular Volume 93.3 fL (78.0-98.0); Mean Platelet Volume 8.3 fL (7.4-10.4); Platelet Count 522 10x3/uL (130-400); RBC Distribution Width 13.8 % (11.5-14.5)
[2024-06-07 05:02] LABS: Vancomycin, Random 17.8 ug/mL (See Comment)
[2024-06-07 05:06] LABS: Anion Gap 10 mmol/L (10-20); BUN (Urea Nitrogen) 13 mg/dL (9.8-20.1); Calc. Creatinine Clearance 46 mL/min (70-130); Calcium 8.7 mg/dL (7.8-10.44); Carbon Dioxide 19 mmol/L (23-31); Chloride 107 mmol/L (98-107); Estimated GFR 96; Glucose 102 mg/dL (83-110); Potassium 4.3 mmol/L (3.5-5.1); Sodium 132 mmol/L (136-145)
[2024-06-07] MEDS: Amlodipine 5 MG TAB PO SCH (09:06)
[2024-06-07] MEDS: Losartan 25 MG TAB PO SCH (09:06)
[2024-06-07 15:59] VITALS: BP 134/62; TEMP 97.5
== END 2024-06-07 16:35 | DRG 640 ==
LOC: ERS 08:08 → ERHOLD 12:56 → OBS 18:53 → OBSVTOIN 05-24 11:58 → 2NO 05-25 10:21
PROVIDERS: ADMIT Internal Medicine; ATTEND Family Medicine
DX: E43 Unspecified severe protein-calorie malnutrition (principal); G93.41 Metabolic encephalopathy; E87.1 Hypo-osmolality and hyponatremia; J44.1 Chronic obstructive pulmonary disease with (acute) exacerbation; Z68.1 Body mass index [BMI] 19.9 or less, adult; I73.9 Peripheral vascular disease, unspecified; J44.9 Chronic obstructive pulmonary disease, unspecified; I10 Essential (primary) hypertension; E87.6 Hypokalemia; Z86.73 Personal history of transient ischemic attack (TIA), and cerebral infarction without residual deficits; Z79.899 Other long term (current) drug therapy; R73.9 Hyperglycemia, unspecified; Z79.4 Long term (current) use of insulin; R91.1 Solitary pulmonary nodule; Z79.82 Long term (current) use of aspirin
CPT/HCPCS: 36415; 36416; 70450; 70486; 70496; 70498; 70551; 71045; 72125; 80048; 80053; 80061; 80202; 80306; 80400; 81001; 82140; 82533; 82550; 82607; 83036; 83735; 83880; 84100; 84443; 84484; 85025; 87040; 93005; 93306; 94640; 96372; 96374; 96375; 96376; 97139; G0378; J0360; J0692; J1650; J1815; J1885; J1940; J3370; J3475; J7030; J7050; J7620; P9047; Q9967